=== PATIENT | male | born 1990 | race Asian ===

== ENCOUNTER → 2021-04-08 | Outpatient (REF) | payer OTHER ==
--- NOTE | 2021-04-09 07:57 | ECHO ---
ECHOCARDIOGRAM DATE OF PROCEDURE: 04/08/2021 Age: 30 Gender: Male Height: 173 cm Weight: 75 kg REFERRING PHYSICIAN: Dr. Jordan Saha INDICATION: Chest pain MEASUREMENTS: IVS 0.9 cm LV 4.6 cm LVPW 0.8 cm LA 2.9 cm Aorta 3.1 cm Left atrium volume index 14 Mitral E wave velocity 50 A wave 61 E prime septal 9.4 E prime lateral 9.8 FINDINGS: This study is of adequate technical quality. There are good parasternal views, but somewhat limited apical and poor subcostal views. Patient is in sinus rhythm. Normal LV size and systolic function with estimated LVEF of 60 to 65%. No segmental wall motion abnormalities are noted. Normal RV size and systolic function. Both atria appear normal. All four cardiac valves were reasonably well seen and appear normal. No pericardial effusion is noted. Inferior vena cava was not visualized. Aortic root is normal. Aortic arch and abdominal aorta were not well seen. Doppler interrogation reveals all four cardiac valves to be functionally competent. Mitral inflow pattern and tissue Doppler imaging of mitral annulus revealed likely grade 1 diastolic dysfunction even though tissue Doppler velocities of mitral annulus are relatively preserved. CONCLUSIONS: 1. Study is of adequate technical quality, underlying sinus rhythm. 2. Normal LV size with normal LV systolic function and grade 1 diastolic dysfunction. 3. No valvular disease. 4. Unable to estimate central venous pressure or pulmonary artery pressure. 5. No obvious explanation for chest discomfort.
== END ==
LOC: M CARPUL 13:24 → EDSTATUS 13:30
PROVIDERS: ATTEND Internal Medicine
DX: R07.9 Chest pain, unspecified (principal)